=== PATIENT | male | born 1950 | race Caucasian/White ===

== ENCOUNTER 2016-09-04 10:18 | Emergency (ER) | payer MEDICARE, OTHER ==
[2016-09-04 11:14] LABS: INR 1.8 (0.9-1.2); PROTHROMBIN TIME 20.3 SECONDS (11.7-14.0); PTT 32.5 SECONDS (23.2-31.4)
[2016-09-04 11:24] LABS: ALBUMIN 3.1 g/dL (3.4-4.8); BILIRUBIN - TOTAL 1.5 mg/dL (0.1-1.0); CREATININE 0.5 mg/dL (0.7-1.2); GLOBULIN (CALCULATION) 2.8 g/dL (2.2-4.2); MAGNESIUM 1.09 mg/dL (1.40-2.10); POTASSIUM 4.6 mmol/L (3.5-5.1); TOTAL PROTEIN 5.9 g/dL (6.4-8.3)
[2016-09-04 11:26] LABS: BASOPHIL 0.3 % (0-2); EOSINOPHIL 0 % (0-7); HCT 26.9 % (42.0-52.0); HGB 9.2 g/dl (13.2-18.0); LYMPHOCYTE 13.2 % (15-48); MCH 29.8 pg (25.0-31.0); MCHC 34.2 g/dL (32.0-36.0); MCV 87.1 fL (78.0-100.0); MONOCYTE 14.6 % (0-12); NEUTROPHIL 71.9 % (41-80); RBC 3.09 M/uL (4.70-6.00); RDW 22.4 % (11.5-14.0); WBC 2.9 K/uL (4.0-10.5)
[2016-09-04 11:27] LABS: PLT 36 K/uL (150-400)
[2016-09-04 11:28] LABS: MYOGLOBIN 21 ng/mL (26-65); TROPONIN T < 0.010 ng/mL
[2016-09-04 11:30] LABS: PRO-BNP 1080 pg/mL (0-125)
== END 2016-09-04 15:43 | disposition home or self-care (01) ==
LOC: FER 10:18
PROVIDERS: Internal Medicine
DX: J18.9 Pneumonia, unspecified organism (principal); C14.0 Malignant neoplasm of pharynx, unspecified; R09.1 Pleurisy
CPT/HCPCS: 36415; 71010; 71275; 80053; 82550; 82553; 83735; 83874; 83880; 84484; 85025; 85379; 85610; 85730; 93005; Q9967